=== PATIENT | female | born 1935 ===

== ENCOUNTER 2019-10-24 12:34 | Emergency (ER) | payer MEDICARE, OTHER ==
[2019-10-24] MEDS ORDERED: fentaNYL 50 MCG/ML SDV IVPUSH ONE (13:02)
[2019-10-24] MEDS ORDERED: Diazepam 2 MG Tab PO ONE (13:08)
[2019-10-24 13:24] VITALS: BP 128/70
--- NOTE | 2019-10-24 14:07 | CR ---
Chest: 2 views of the chest were obtained. Comparison: No prior chest x-ray. Heart size is slightly prominent in size. Tortuous thoracic aorta is noted. Lungs are clear but hyperinflated. Slight degenerative change is scattered within the spine with minimal scoliosis. Impression: 1. Emphysematous change. 2. Other findings as noted above. Nothing acute is seen. Diagnostic code #2 Study was dictated in [place] [employer]
--- NOTE | 2019-10-24 14:07 | CR ---
Lumbar spine: AP, lateral and coned-down lateral view centered to the lumbosacral junction were obtained. Mild to moderate disc space narrowing at L4-L5. Mild disc space narrowing at L5-S1. Other disc spaces are maintained. Vertebral body heights are maintained. Minimal scattered endplate osteophytes are seen. Pedicles are intact. Bony structures are osteoporotic. Joint space narrowing is seen within both hips. No acute fracture or subluxation is seen. Impression: 1. Degenerative change as noted above. Osteopenia. 2. Nothing acute is seen. Diagnostic code #2 Study was dictated in [place] [employer]
--- NOTE | 2019-10-24 14:07 | CR ---
Thoracic spine: AP and lateral views of the thoracic spine were obtained. Comparison: No prior thoracic spine imaging. Mild disc space narrowing is scattered within the mid to upper thoracic spine is noted. Bony structures are osteopenic. Pedicles are intact. Minimal scoliosis is noted. No fracture or abnormal subluxation is appreciated. Impression: 1. Mild disc space narrowing with osteopenia. 2. Minimal scoliosis. Diagnostic code #2 Study was dictated in [place] [employer] [place]
[2019-10-24 14:18] VITALS: PULSE 73
[2019-10-24] MEDS ORDERED: Cyclobenzaprine 10 MG Tab PO ONE (14:21)
--- NOTE | 2019-10-24 14:35 | EDM.PDOC ---
ED HPI GENERAL MEDICAL PROBLEM - General Chief Complaint: Back Pain or Injury Stated Complaint: BACK PAIN Time Seen by Provider: 10/24/19 12:55 - History of Present Illness INITIAL COMMENTS - FREE TEXT/NARRATIVE: HPI 84-year-old female presents for evaluation of ~3 days of poorly characterized left lateral lower back pain that is spasming, crampy, sharp, and nonradiating nature. Pain began insidiously in the course of normal daily activities. Patient denies a history of recent trauma, fevers, chills, unexpected weight loss, decreased perineal sensation when toileting, difficulty urinating or incontinence, morning stiffness, IV drug use, alcoholism, recent invasive medical procedures, presyncope, abdominal pain, or dysuria. Anticoagulation: denies anticoagulation and Plavix, denies stents. Patient is a company by her adult son who notes that they saw her PCP yesterday but they did nothing. Imaging requested by patient/son as they are concerned there may be an occult fracture. Patient is a never smoker. Recent imaging: CT abdomen and pelvis (10/09/19): 1. The right kidney is mostly pelvic in rotation. Small nonobstructing stone is noted within the lower left kidney. No additional renal abnormality is seen. No ureteral stone or ureteral dilation. Delayed images show contrast with thin distal ureters and bladder. 2. Increased tool with in the colon. Aorta shows atherosclerotic calcifications without aneurysm. M/S/F/SocHx notable for: neck spasms; remainder reviewed with patient and in chart. ROS: Negative constitutional, eye, cardiovascular, pulmonary, GI, , MSK, skin , neurologic, psychiatric, endocrine unless noted in the HPI. Exam HR 69, RR 20, BP 119/80, T 35.7C, SaO2 95% on room air. Gen: Pleasant, non-toxic appearing, resting comfortably, however the patient has episodic outbursts of pain in which she grass at her left lower back and appears to be experiencing spasming cramps. HEENT: NC, AT, PEERL, EOMI. Resp: clear to auscultation bilaterally. Card: RRR GI: ND, non-tender to palpation, no palpable midline masses, no palpable midline pulsatility. : No CVA tenderness to percussion bilaterally. MSK: No visible deformities, strength and tone WNL. No lower thoracic or lumbar spinal TTP, step offs or deformities. No paraspinal TTP. Skin: Normal color with no visible lesions. Neuro: alert and oriented 3, no facial asymmetry, vision and hearing WNL. Straight leg raise test - negative right, negative left. BLE distal sensation intact, 5/5 dorsiflexion / plantarflexion bilaterally. Gait: non-antalgic, normal, narrow based gait, able to walk unassisted and stand on heels and toes with full apparent strength. Psych: Mood and affect appropriate. Labs / Imaging (pertinent): XR L Spine: degenerative changes noted above. Osteopenia. Nothing acute is seen. XR T Spine: mild disc space narrowing with osteopenia. Minimal scoliosis. CXR: emphysematous change. Focused Aortic Ultrasound Indication: Back Pain. Exam type (limited): Initial. Views obtained: Transverse proximal aorta, Transverse mid aorta , Transverse distal aorta and Sagittal view aorta. Findings/Interpretation: No evidence of AAA in visualized areas of aorta AAA visualized: greatest measurement in transverse diameter: 1.9 cm at the mid aorta. MDM Previous chart, nursing note, and vitals reviewed. A: 84-year-old female presents for evaluation of ~3 days of poorly characterized left lateral lower back pain that is spasming, crampy, sharp, and nonradiating nature. Pain began insidiously in the course of normal daily activities. DDx: muscle strain, muscle spasm, sciatica, lumbar radiculopathy, cauda equina syndrome, spinal cord abscess, vertebral osteomyelitis, vertebral diskitis, fracture, seronegative spondyloarthropathy, abdominal aortic aneurysm, abdominal aortic dissection, spontaneous hematoma, malignant spinal cord compression. Evaluation: * Cauda equina - consider unlikely given normal perineal sensation, lack of incontinence or urinary retention. * Infection - abscess, vertebral osteomyelitis, and diskitis are unlikely as the patient is immunocompetent and is with an absence of infectious signs and risk factors on ROS, and a lack of point tenderness. * Fracture - doubt given the absence of spinal TTP and lack of prior trauma. Additionally no evidence by imaging. * Seronegative spondyloarthropathy - unlikely, no further evaluation currently indicated given the absence of morning stiffness and negative RA, psoriatic arthritis, and autoimmune disease history. * AAA or Dissection - doubt AAA given non-aneurysmal aorta on imaging dated 10/09. * Spinal Metastases - given the unremarkable ROS, absence of point spinal tenderness on exam and the lack of discernible neurological deficit, and normal x-rays; no further testing regarding this etiology is currently indicated. * Consider muscle spasm to be the most likely cause of the patients symptoms. Counseled patient regarding natural course of musculoskeletal back pain, given return to care instructions, and recommendation for primary care physician follow up. Discharged with RX for Flexeril. ED course: patient given 2 mg Valium p.o. with inadequate relief of symptomatology. Given a further 10 mg cyclobenzaprine. Impression: Back Pain. Left Middle Back Pain Score (Numeric/FACES): 8 - Related Data Allergies Allergy/AdvReac Type Severity Reaction Status Date / Time No Known Allergies Allergy Verified 10/24/19 12:48 Home Meds: Home Meds Levothyroxine [Synthroid] 100 mcg PO QAM 02/03/17 [History] Multivitamin [Multivitamins] 1 tab PO DAILY 02/03/17 [History] [place]-3/DHA/Epa/Fish Oil [[place]-3 Fish Oil 1,000 MG Sfgl] 1,000 mg PO DAILY [History] Isosorbide Mononitrate [Isosorbide Mononitrate ER] 30 mg PO QAM 01/19/18 [ History] Metoprolol Succinate 12.5 mg PO BID #14 tab.er.24h 01/20/18 [Rx] Aspirin [Adult Low Dose Aspirin EC] 81 mg PO DAILY 01/02/19 [History] Cholecalciferol (Vitamin D3) [Vitamin D3] 1,000 unit PO DAILY 01/02/19 [History] Estrogens, Conjugated [Premarin Vaginal Crm] 1 dose VAG ASDIRECTED PRN 01/02/19 [History] Flaxseed Oil 1,000 mg PO DAILY 01/02/19 [History] Simvastatin 20 mg PO DAILY 01/02/19 [History] Vitamin E 1,000 unit PO DAILY 01/02/19 [History] cycloSPORINE [Restasis Multidose] 1 drop EYEBOTH BEDTIME 01/02/19 [History] Cyclobenzaprine [Flexeril] 5 mg PO TID #15 tab 10/24/19 [Rx] Past Medical History - Past Health History Medical/Surgical History: Denies Medical/Surgical History HEENT History: Reports: Allergic Rhinitis, Cataract, Other (See Below) Other HEENT History: wears glasses Cardiovascular History: Reports: Hypertension Respiratory History: Reports: Other (See Below) Other Respiratory History: hx of reactive airway disease Gastrointestinal History: Reports: Irritable Bowel Syndrome Genitourinary History: Reports: UTI, Recurrent Other Genitourinary History: hx of Interstitual cystitis- not recently 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: 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 BURRER OPERATOR History: hx of hysterectomy Musculoskeletal History: Reports: Fracture Other Musculoskeletal History: hx right arm fx x2 Psychiatric History: Reports: None Endocrine/Metabolic History: Reports: Hypothyroidism Hematologic History: Reports: Blood Transfusion(s) - Infectious Disease History Infectious Disease History: Reports: Chicken Pox, Measles, Mumps - Past Surgical History HEENT Surgical History: Reports: Cataract Surgery Cardiovascular Surgical History: Reports: Varicose Other Cardiovascular Surgeries/Procedures: hx of right leg vein stripping Respiratory Surgical History: Reports: None GI Surgical History: Reports: Appendectomy Female Surgical History: Reports: Cystoscopy, Hysterectomy, Salpingo- Oophorectomy Social & Family History - Family History Family Medical History: Noncontributory - Tobacco Use Smoking Status *Q: Never Smoker - Caffeine Use Caffeine Use: Reports: Tea - Recreational Drug Use Recreational Drug Use: No ED ROS GENERAL - Review of Systems Review Of Systems: See Below ED EXAM, GENERAL - Physical Exam Exam: See Below Course - Vital Signs Last Recorded V/S: Last Vital Signs Temp 35.7 C L 10/24/19 12:49 Pulse 73 10/24/19 14:18 Resp 20 10/24/19 12:49 BP 128/70 10/24/19 13:23 Pulse Ox 96 10/24/19 14:18 - Orders/Labs/Meds Orders: Active Orders 24 hr Category Date Time Status Communication Order [RC] STAT Care 10/24/19 14:32 Ordered Overnight Pulse Oximetry [RC] Click to Edit Care 10/24/19 13:03 Active Pulse Oximetry Continuous Monitoring [OM.PC] Routine Oth 10/24/19 13:03 Ordered Meds: Medications Discontinued Medications Generic Name Dose Route Start Last Admin Trade Name Freq PRN Reason Stop Dose Admin Cyclobenzaprine HCl 10 mg 10/24/19 14:21 Flexeril PO 10/24/19 14:22 ONETIME ONE Diazepam 2 mg 10/24/19 13:02 10/24/19 13:17 Valium IVPUSH 10/24/19 13:03 Not Given ONETIME ONE Diazepam 2 mg 10/24/19 13:08 10/24/19 13:18 Valium PO 10/24/19 13:09 2 mg ONETIME ONE Administration Fentanyl 25 mcg 10/24/19 13:02 10/24/19 13:17 Fentanyl IVPUSH 10/24/19 13:03 Not Given ONETIME ONE Departure - Departure Time of Disposition: 14:33 Disposition: DC/Tfer to Medicaid Nur Fac 64 Clinical Impression: Back pain - Discharge Information Prescriptions: Cyclobenzaprine [Flexeril] 5 mg PO TID #15 tab Referrals: William Gamboa MD [Primary Care Provider] - Additional Instructions: You were in seen in the [facility] Emergency Department for evaluation of back pain. Please read and follow all of the instructions below. Please follow up with your primary care physician in 4-5 days if you still have symptoms. When calling for follow-up care, please make the office aware that this follow-up is from your recent emergency room visit. If for any reason you are refused follow-up, please contact the [facility] Emergency Department at and asked to speak to the emergency department charge nurse. Your care today was limited to identifying and treating emergent medical problems only. Many people have subtle differences in their test results that require follow up with their outpatient physician(s) to correctly determine if this represents a normal variation or concerning abnormality with respect to your specific health. The care given to you today was limited to identifying and treating emergent medical problems - you need to request a copy of all of your medical records from today's visit and follow up with your outpatient physician(s) to review both today's visit and your overall health. If you have any new symptoms or if you are at all concerned about your health please return immediately to the emergency department. Prescriptions: If you are uninsured or have financial difficulties with filling your prescription(s), you may consider using a free pharmacy discount service such as [employer] ([facility]) or [employer] ([employer]). These services allow you to search for a medication on your phone (or computer) and obtain a coupon that usually has a significant discount from the list bradley at a pharmacy. Your physician as well as [facility] does not have a financial relationship with either of these services. You may also wish to speak with your physician to determine if lower cost prescriptions are possible. Obtaining primary care: 1. [facility] provides pediatrics (children), family medicine (children, adults, and some obstetrical care), and internal medicine (adults). Further specialty care is also available. Same day appointments are available. They may be contacted at [phone] and are open Wednesday through Wednesday 8 AM to 5 PM. [facility] are located at [facility], [address] [place] [address]. 2. [facility] offers family medicine, internal medicine, [facility], and further specialty care. [facility] may be contacted at [phone]. [facility] is located at [address] [facility] [address]. 3. If you have health insurance, please also contact your insurer for a list of accepting providers under your policy, you may contact these providers for further health care. Occupational health: Work related injuries may consider following up with [facility], . Occupational health services are located at [address] [place] [address] and are open Wednesday through Wednesday from 7: 30 am to 5:00 pm. Obstetrical and Gynecological Care: [facility], , Wednesday through Wednesday 8 AM to [address] [place] [address]. Eyecare: If you have an eye injury you should follow up with your senior java software developer or with [facility], at [phone] or [phone] , they are located at [address] [place] [address]. [facility] Holden Faria DDS. [address] [place], [place]. Ph. [phone] Isaac Faria DDS MS. [address] Ph. [phone] Steven Colmenares DDS. [address] [place] [address]. Ph. [phone] Chano Myles DDS. [address] [facility] [address] [place], [place]. Ph. [phone] Olayinka Mccarty Lori DDS PC. [address] [facility] [address] [place], [place]. Ph. Cardoza Toi Valencia DDS. [address] [facility]. Ph. [phone] [facility]. [address] [place], [place]. Ph. [phone] [facility]. [address], [place], [place]. Ph. [phone] [facility] [address] [place] [address]. Ph. [facility]. [address] [place] [address] [address] [place]. Ph. [phone] [facility]. [address] [place], [place]. Ph. [phone] Back Pain You were evaluated today in the emergency department for your back pain. Your pain is believed to be caused by muscle stains and spasms. This type of pain can be very severe, but it is almost never serious. * You may take ibuprofen 600 mg every 6 to 8 hours as needed for pain. You may take acetaminophen 1000 mg every 8 hours in addition to the ibuprofen for further pain relief. Both of these medications provide very good reduction in pain with minimal side effects. Do not take this ibuprofen if you are or allergic to ibuprofen, Motrin, Aleve, or Naproxen. Do not take acetaminophen if you are allergic to Tylenol or acetaminophen. If you have liver disease you may take up to 2000 mg of acetaminophen per day. * Call your primary care physician to schedule a follow up appointment. Many people have pain that lasts beyond the length of the medications prescribed in the emergency department. You may also benefit from physical therapy, lifestyle changes, and further evaluation. Please return to the emergency department if you develop any of the following: * Pain on your spine (on the bones) * Have numbness or weakness in your legs * Have problems with bowel or bladder control * Have decreased sensation in your groin or at your anus * Have unexplained weight loss * Have a fever or feel sick in other ways * If you have pain that is so severe that you cannot perform simple tasks * If you are otherwise concerned about your health Please follow up with your primary care physician if you still have pain after 4 -5 days. What causes low back pain? In most cases, doctors and nurses do not know what causes low back pain. Pain can happen if you strain a muscle or hurt a tendon or ligament. But if that is the cause of your pain, doctors and nurses have no way of knowing it for sure. Pain can also happen if you have: * Damaged, bulging, or torn discs * Arthritis affecting the joints of the spine * Bony growths on the vertebrae that crowd nearby nerves * A vertebra out of place * Narrowing in the spinal canal * A tumor or infection (but this is very rare) Should I get an imaging test, like an MRI? Most people do not need an imaging test. Most cases of back pain go away within 4 to 6 weeks or in even less time. Doctors and nurses usually do not order imaging tests before then unless there are signs of something unusual. * If your doctor or nurse does not order an imaging test, do not worry. He or she can still learn a lot about your pain just from looking you over and talking with you. Plus, treatment can start right away, even without an imaging test. * How can the doctor or nurse tell what is wrong just by talking to me? Your symptoms tell your doctor or nurse a lot about the cause of your pain. If your pain spreads down the back of one thigh, for instance, that could be a sign that one of the nerves that go to your leg is being pinched by a bulging or torn disc. If, on the other hand, your pain goes all the way down both legs, that could be a sign that you have bony growths on your spine. * What can I do to feel better? The best thing you can do is to stay as active as possible even if you are in pain. People with low back pain recover faster if they stay active. Walk as much as you can. If you stopped working because of your pain, try to get back to your normal routine soon. But do not overdo it. * When you start to feel better, ask your doctor or nurse about exercises that can help strengthen your back. These exercises can help you get better faster and might make it less likely that you will have pain again. How is back pain treated? A small number of people end up needing surgery to treat back pain. But most people do well with simpler treatments, such as: * Physical therapy to teach you special exercises and stretches * Injections of medicines that numb the back or reduce swelling * What can I do to keep from getting back pain again? Stay active, maintain a healthy body weight and learn exercises that help strengthen and stretch your back. Learn to lift using your legs instead of your back. And avoid sitting or standing in the same position for too long. You make take over the counter Acetaminophen (Tylenol) and Ibuprofen (Motrin or Aleve) as directed below for relief of pain. * You can take these medications at the same time or on separate schedules. * Do not take for more than 10 days. * Do not take with alcohol or other acetaminophen containing medications. * This medication may cause a mildly upset stomach, if so take it with a small snack. Stop taking it if you have persistent abdominal pain, heartburn, or any stomach pain. Do not take this medication if you have known ulcers. * Please read the warnings at the end of this document regarding these medications. Ibuprofen (Brand Names: Motrin, Advil) Take 400 mg with a glass of water every 6 to 8 hours as needed for pain or fever. Do not take for more than 10 days. This medication may cause a mildly upset stomach, if so take it with a small snack. Stop taking it if you have persistent abdominal pain, heartburn, or any stomach pain. Do not take this medication if you have known ulcers. Do not take with Naproxen Sodium (brand name: Aleve) or other non-steroidal antiiflammatory medications that you may be prescribed (e.g. Diclofenac, Etodolac, Indomethicin) WARNING: This drug may infrequently cause serious (rarely fatal) bleeding from the stomach or intestines. Also, related drugs rarely have caused blood clots to form, resulting in heart attacks and strokes. This medication might also rarely cause similar problems. Talk to your doctor or pharmacist about the benefits and risks of treatment, as well as other possible medication choices. If you notice any of the following rare but very serious side effects, stop taking ibuprofen and seek immediate medical attention: black stools, persistent stomach/abdominal pain, vomit that looks like coffee grounds, chest pain, weakness on one side of the body, sudden vision changes, slurred speech. SIDE EFFECTS: Upset stomach, nausea, vomiting, heartburn, headache, diarrhea, constipation, drowsiness, and dizziness may occur. If any of these effects persist or worsen, notify your doctor or pharmacist promptly. If your doctor has directed you to use this medication, remember that he or she has judged that the benefit to you is greater than the risk of side effects. Many people using this medication do not have serious side effects. Tell your doctor immediately if any of these serious side effects occur: stomach pain, swelling of the hands or feet, sudden or unexplained weight gain, ringing in the ears ( tinnitus). Tell your doctor immediately if any of these unlikely but serious side effects occur: vision changes, rapid or pounding heartbeat, easy bruising or bleeding, difficult/painful swallowing. Tell your doctor immediately if any of these highly unlikely but very serious side effects occur: change in amount of urine, severe headache, very stiff neck, mental/mood changes, persistent sore throat or fever. This drug may rarely cause serious (possibly fatal) liver disease. If you notice any of the following highly unlikely but very serious side effects, stop taking ibuprofen and consult your doctor or pharmacist immediately: yellowing eyes and skin, dark urine, unusual/extreme tiredness. An allergic reaction to this drug is unlikely, but seek immediate medical attention if it occurs. Symptoms of an allergic reaction include: rash, itching/ swelling (especially of the face/tongue/throat), severe dizziness, trouble breathing. This is not a complete list of possible side effects. DRUG INTERACTIONS: Your healthcare professionals (e.g., doctor or pharmacist) may already be aware of any possible drug interactions and may be monitoring you for it. Do not start, stop or change the dosage of any medicine before checking with them first. This drug should not be used with the following medications because very serious interactions may occur: cidofovir, ketorolac. If you are currently using any of these medications listed above, tell your doctor or pharmacist before starting ibuprofen. Before using this medication, tell your doctor or pharmacist of all prescription and nonprescription/herbal products you may use, especially of: anti-platelet drugs (e.g., cilostazol, clopidogrel), oral bisphosphonates (e.g., alendronate), other medications for arthritis (e.g., aspirin, methotrexate), "blood thinners" (e.g., enoxaparin, heparin, warfarin), corticosteroids (e.g., prednisone), cyclosporine, desmopressin, high blood pressure drugs (including JESSIE inhibitors such as captopril, angiotensin II receptor antagonists such as losartan, and beta- blockers such as metoprolol), lithium, pemetrexed, "water pills" (diuretics such as furosemide, hydrochlorothiazide, triamterene). Check all prescription and nonprescription medicine labels carefully for other pain/fever drugs ( NSAIDs such as aspirin, celecoxib, naproxen). These drugs are similar to ibuprofen, so taking one of these drugs while also taking ibuprofen may increase your risk of side effects. Consult your doctor or pharmacist for more details. However, if your doctor has prescribed low doses of aspirin to prevent heart attack or stroke (usually at dosages of 81-325 milligrams a day), you should continue to take the aspirin. Daily use of ibuprofen may decrease aspirin 's ability to prevent heart attack/stroke. Talk to your doctor about using a different medication (e.g., acetaminophen) to treat pain/fever. If you must take ibuprofen, talk to your doctor about possibly taking immediate-release aspirin (not enteric-coated) while also taking the ibuprofen dose apart from your aspirin dose. Do not increase your daily dose of aspirin or change the way you take aspirin/other medications without your doctor's approval. This document does not contain all possible interactions. Therefore, before using this product, tell your doctor or pharmacist of all the products you use. Keep a list of all your medications with you, and share the list with your doctor and pharmacist. Acetaminophen (Tylenol) Please take 1,000 mg every 6 hours as needed for pain. Do no use with alcohol or other acetaminophen containing medications. SIDE EFFECTS: This drug usually has no side effects. If you do not have liver problems, the maximum dose of acetaminophen for adults is 4 grams per day (4000 milligrams). Taking more than the maximum daily amount may cause serious ( possibly fatal) liver damage. Get medical help right away if you have any of the following symptoms of liver damage: persistent nausea/vomiting, extreme tiredness, stomach/abdominal pain, yellowing eyes/skin, dark urine. If you have liver problems, consult your doctor or pharmacist for a safe dosage of this medication. A very serious allergic reaction to this drug is rare. However, get medical help right away if you notice any symptoms of a serious allergic reaction, including: rash, itching/swelling (especially of the face/tongue/ throat), severe dizziness, trouble breathing. This is not a complete list of possible side effects. If you notice other effects not listed above, contact your doctor or pharmacist. Sepsis Event Note - Evaluation Sepsis Screening Result: No Definite Risk - Focused Exam Vital Signs: Vital Signs Temp Pulse Resp BP Pulse Ox 10/24/19 14:18 73 96 10/24/19 13:23 74 128/70 96 10/24/19 12:49 35.7 C L 69 20 119/80 95 Date Exam was Performed: 10/24/19 Time Exam was Performed: 14:33 - My Orders Last 24 Hours: My Active Orders 10/24/19 13:03 Overnight Pulse Oximetry [RC] Click to Edit Pulse Oximetry Continuous Monitoring [OM.PC] Routine 10/24/19 14:32 Communication Order [RC] STAT - Assessment/Plan Last 24 Hours: My Active Orders 10/24/19 13:03 Overnight Pulse Oximetry [RC] Click to Edit Pulse Oximetry Continuous Monitoring [OM.PC] Routine 10/24/19 14:32 Communication Order [RC] STAT
[2019-10-24] MEDS ORDERED: Cyclobenzaprine 5 MG Tab PO ONE (14:36)
== END 2019-10-24 14:56 | disposition home or self-care (01) ==
LOC: MW.ED 12:34
DX: M54.6 Pain in thoracic spine (principal); M54.5 Low back pain; I10 Essential (primary) hypertension; E03.9 Hypothyroidism, unspecified; Z79.899 Other long term (current) drug therapy; Z79.82 Long term (current) use of aspirin
CPT/HCPCS: 71046; 72070; 72100; 99283; A9270